=== PATIENT | female | born 1945 | race Caucasian/White ===

== ENCOUNTER → 2017-06-03 | Outpatient (CLI) | payer MEDICARE, OTHER ==
[~2017-06-03] MED LIST: ACET325T14 PO; ATOR10TA9 PO; CARV-39 PO; CEPH-368 PO; DABI150C PO; DIGO125T PO; FURO40TA6 PO; GLIP-142 PO; GLIP10TA13 PO; LACT1CAP13 PO; LEVO100T74 PO; LEVO125T PO; LEVO150T5 PO; LEVO500T47 PO; LISI5TAB7 PO; METF10002 PO; METFORMIN PO; METH10TA6 PO; METH50TA3 PO; MULT-257 PO; OMEP-110 PO; POTA10TA5 PO; POTA20TA14 PO; POTASSIUM CHLORIDE PO; SIMV40TA3 PO; SITA50TA PO; SUCR1TAB33 PO; [UNRECOGNIZED DRUG - OTHER] PO
== END ==
LOC: PETCFH 08:45
PROVIDERS: ATTEND Internal Medicine
DX: E21.0 Primary hyperparathyroidism (principal)
CPT/HCPCS: 78070; A9500

== ENCOUNTER 2017-10-16 16:18 | Emergency (ER) | payer MEDICARE, OTHER ==
[~2017-10-16] VITALS: Ht 157.5 cm; Wt 58.2 kg
[2017-10-16 17:13] VITALS: BP 165/75
[2017-10-16] MEDS ORDERED: ACETAMINOPHEN 325 MG TABLET ONE (17:26)
[2017-10-16] MEDS ORDERED: ACETAMINOPHEN 325 MG TABLET PO ONE (17:30)
== END 2017-10-16 18:41 | disposition home or self-care (01) ==
LOC: ED 18:20
DX: S29.8XXA Other specified injuries of thorax, initial encounter (principal); I10 Essential (primary) hypertension; E11.9 Type 2 diabetes mellitus without complications; I48.91 Unspecified atrial fibrillation; Z87.891 Personal history of nicotine dependence; W19.XXXA Unspecified fall, initial encounter; Y93.89 Activity, other specified; Y99.8 Other external cause status; Y92.009 Unspecified place in unspecified non-institutional (private) residence as the place of occurrence of the external cause
CPT/HCPCS: 71046; 93005; 99284

== ENCOUNTER 2017-10-28 07:24 | Emergency (ER) | payer MEDICARE, OTHER ==
[~2017-10-28] VITALS: Ht 154.9 cm; Wt 60.0 kg
[2017-10-28 08:11] LABS: MEAN CORPUSCULAR HEMOGLOBIN 23.3 pg (27.0-34.8); MEAN CORPUSCULAR HGB CONC 31.2 g/dL (32.4-35.8); MEAN CORPUSCULAR VOLUME 74.7 fL (80-100); MEAN PLATELET VOLUME 8.8 fL (7.4-10.4); PLATELET COUNT 394 x10^3/uL (130-400); RED BLOOD COUNT 4.64 x10^6/uL (3.82-5.3); RED CELL DISTRIBUTION WIDTH 28.7 % (9.6-15.2)
[2017-10-28 08:14] LABS: ALANINE AMINOTRANSFERASE 23 U/L (12-78); ALBUMIN 3.7 g/dL (3.4-5.0); ANION GAP 8 mmol/L (5-15); CALCIUM 10.7 mg/dL (8.5-10.1); CHLORIDE 102 mmol/L (98-107); CREATININE 0.78 mg/dL (0.55-1.02)
[2017-10-28 08:19] LABS: ALKALINE PHOSPHATASE 148 U/L (45-117); BILIRUBIN,TOTAL 0.2 mg/dL (0.2-1.0); TOTAL PROTEIN 7.6 g/dL (6.4-8.2); TROPONIN I < 0.015 ng/mL (0.000-0.045)
[2017-10-28 08:37] LABS: INTERNATIONAL NORMALIZED RATIO 1.51 (0.93-1.1); PROTHROMBIN TIME 15.6 Seconds (9.6-11.5)
[2017-10-28] MEDS ORDERED: CEFTRIAXONE 1,000 MG in SODIUM CHLORIDE 0.9% 50 ML IVPB ONE (09:00)
[2017-10-28 09:05] VITALS: BP 170/68
[2017-10-28 09:24] LABS: MD YES
[2017-10-28 09:27] LABS: ANISOCYTOSIS 1+; BASOS#(MANUAL) 0.11 x10^3/uL (0-0.1); BASOS% (MANUAL) 1 % (0-1); EOS#(MANUAL) 0.78 x10^3/uL (0.0-0.4); EOS% (MANUAL) 7 % (1-7); LYMPH#(MANUAL) 2.35 x10^3/uL (1-3.4); LYMPHS% (MANUAL) 21 % (22-44); MICROCYTOSIS 1+; MONOS#(MANUAL) 0.56 x10^3/uL (0.3-2.7); MONOS% (MANUAL) 5 % (2-9); OVALOCYTES 1+; SEG#(MANUAL) 7.39 x10^3/uL (1.8-6.8); SEGS% (MANUAL) 66 % (42-75)
[2017-10-28 09:28] LABS: <PLATELET ESTIMATE> ADEQUATE; <PLT MORPHOLOGY> NORMAL PLT MORPH
[2017-10-28] MEDS ORDERED: AZITHROMYCIN 500 MG TABLET PO ONE (09:30)
[2017-10-28] MEDS ORDERED: AMOXICILLIN 500 MG CAPSULE PO ONE (09:30)
[2017-10-28] MEDS ORDERED: AZITHROMYCIN 250 MG TABLET ONE (09:30)
== END 2017-10-28 09:40 | disposition home or self-care (01) ==
LOC: ED 07:50
DX: J15.9 Unspecified bacterial pneumonia (principal); J90 Pleural effusion, not elsewhere classified; E11.9 Type 2 diabetes mellitus without complications; I50.9 Heart failure, unspecified; I11.0 Hypertensive heart disease with heart failure; I48.91 Unspecified atrial fibrillation
CPT/HCPCS: 36415; 71045; 80053; 83605; 83880; 84145; 84484; 85025; 85610; 87040; 93005; 99285

== ENCOUNTER 2019-02-15 13:51 | Outpatient (CLI) | payer MEDICARE, OTHER ==
[2019-02-15] MEDS ORDERED: OMNIPAQUE 350 MG/ML, 100ML BOTTLE ONE (15:50)
== END 2019-02-15 23:59 | disposition home or self-care (01) ==
LOC: CFH 13:51
PROVIDERS: ATTEND Student in an Organized Health Care Education/Training Program
DX: E04.1 Nontoxic single thyroid nodule (principal); R59.0 Localized enlarged lymph nodes; E21.0 Primary hyperparathyroidism; I10 Essential (primary) hypertension; E11.9 Type 2 diabetes mellitus without complications; E78.00 Pure hypercholesterolemia, unspecified; I48.91 Unspecified atrial fibrillation; Z87.891 Personal history of nicotine dependence; Z85.841 Personal history of malignant neoplasm of brain; Z83.3 Family history of diabetes mellitus; Z80.1 Family history of malignant neoplasm of trachea, bronchus and lung; Z79.899 Other long term (current) drug therapy
CPT/HCPCS: 70498; Q9967

== ENCOUNTER 2019-04-08 10:52 | Outpatient (CLI) | payer MEDICARE, OTHER | END 2019-04-08 23:59 | disposition home or self-care (01) | LOC: CFH 10:52 | PROVIDERS: ATTEND Surgery | DX: M81.0 Age-related osteoporosis without current pathological fracture (principal); E21.0 Primary hyperparathyroidism | CPT/HCPCS: 77080 ==

== ENCOUNTER → 2020-08-24 | Outpatient (CLI) | payer MEDICARE, OTHER ==
[~2020-08-24] MED LIST changes: +AMOX1TAB64 PO; +CLON0.1T22 PO; -DIGO125T PO; +DIGO125T85 PO; +DOXY100C2 PO; +SIMV40TA20 PO; -SIMV40TA3 PO
== END | disposition home or self-care (01) ==
LOC: CFH 11:52
PROVIDERS: ATTEND Nurse Practitioner
DX: M51.36 Other intervertebral disc degeneration, lumbar region (principal); M47.816 Spondylosis without myelopathy or radiculopathy, lumbar region; M48.07 Spinal stenosis, lumbosacral region
CPT/HCPCS: 72131